=== PATIENT | female | born 1975 | race Caucasian/White ===

== ENCOUNTER → 2016-08-17 | Outpatient (CLI) | payer OTHER ==
[~2016-08-17] MED LIST: INDSR/60 PO
[2016-08-17 13:45] LABS: BASO % 0.4 %; BASO ABS # 0.03 K/uL (0-0.2); COMPLETE YES; EOS % 0.5 %; HEMATOCRIT 42.7 % (37-47); IG% 0.3 %; LYMPH % 21.4 %; MEAN CELL VOLUME 97.9 fL (80-100); MEAN CORPUSCULAR HEMOGLOBIN 33.7 pg (25-34); MEAN CORPUSCULAR HGB CONC 34.4 g/dl (32-36); MEAN PLATELET VOLUME 10.8 fL (7.4-10.4); MONO % 7.8 %; NEUT % 69.6 %; PLATELET COUNT 226 K/uL (130-400); RED BLOOD COUNT 4.36 M/uL (4.2-5.4); WHITE BLOOD COUNT 7.46 K/uL (4.8-10.8)
[2016-08-17 14:21] LABS: ALB/GLOB RATIO 1.3 (0.9-2); ALT/SGPT 18 U/L (12-78); AST/SGOT 13 U/L (15-37); BLOOD UREA NITROGEN 8 mg/dl (7-18); CALCIUM 8.5 mg/dl (8.5-10.1); CARBON DIOXIDE 28 mmol/L (21-32); CHLORIDE 106 mmol/L (98-107); CHOLESTEROL 202 mg/dl (0-200); CREATININE 0.75 mg/dl (0.60-1.20); GLUCOSE 87 mg/dl (70-99); SODIUM 141 mmol/L (136-145)
[2016-08-17 14:28] LABS: ALKALINE PHOSPHATASE 56 U/L (45-117); CHOLESTEROL/HDL RATIO 3.4; HDL CHOLESTEROL 60 mg/dl; THYROID STIMULATING HORMONE 0.702 uIu/ml (0.300-4.500); TRIGLYCERIDES 65 mg/dl (0-150); VERY LOW DENSITY LIPOPROT CALC 13 mg/dl
[2016-08-17 14:38] LABS: URINE APPEARANCE CLEAR (CLEAR); URINE BILIRUBIN NEG (NEG); URINE COLOR YELLOW; URINE NITRITE NEG (NEG); URINE PH 6.5 (4.5-7.5); URINE SPECIFIC GRAVITY 1.017 (1.000-1.030); UROBILINOGEN NEG (NEG)
[2016-08-17 14:47] LABS: MANUAL MICROSCOPIC REQUIRED? NO; REVIEW REQ? NO
== END | disposition home or self-care (01) ==
LOC: C.LABPBG 08:14
PROVIDERS: ATTEND Family Medicine
DX: E78.5 Hyperlipidemia, unspecified (principal); E55.9 Vitamin D deficiency, unspecified; G47.00 Insomnia, unspecified

== ENCOUNTER → 2017-01-23 | Outpatient (CLI) | payer OTHER ==
[2017-01-23 13:22] LABS: CHOLESTEROL/HDL RATIO 4.1
[2017-01-25 20:32] LABS: ZZ25HYDROXYVITAMIN D2+D3 26 ng/mL (30-100)
== END | disposition home or self-care (01) ==
LOC: C.LABPBG 09:01
PROVIDERS: ATTEND Family Medicine
DX: E78.5 Hyperlipidemia, unspecified (principal); E55.9 Vitamin D deficiency, unspecified

== ENCOUNTER 2017-09-04 16:43 | Emergency (ER) | payer OTHER ==
[~2017-09-04] VITALS: Ht 167.6 cm; Wt 70.5 kg
[2017-09-04 16:48] VITALS: Ht 167.6 cm; Wt 70.5 kg
[2017-09-04] MEDS ORDERED: ALBUT/IPRATROP 3MG/0.5MG NEB 3 ML VIAL INH STA (17:09)
[2017-09-04] MEDS ORDERED: ACETAMINOPHEN 500 MG TAB PO STA (17:09)
--- NOTE | 2017-09-04 17:22 | EMERGENCY ROOM VISIT NOTE ---
History First contact with patient: 16:51 Chief Complaint: FLU LIKE SX Stated Complaint: CHILLS,FEVER,BACK PAIN,SOB History of Present Illness The patient is a 42 year old female who presents to the Emergency Room with complaints of flulike symptoms. The patient reports that she has had chills, fever, bodyaches and cough beginning today. She states that approximately 3 weeks ago, she was diagnosed with influenza at the [place] emergency department. She states that her cough never improved since then. She reports that her temperature today was 101F. She does have a history of COPD and states that she often gets bronchitis. She rates her overall discomfort in 8/ 10. She did not take any medications for her symptoms. She does report some shortness of breath and has been using her inhalers at home without relief. She denies headache, neck pain/stiffness, abdominal pain, nausea or vomiting. Review of Systems A complete 10 point review of systems was reviewed with the patient with pertinent positives and negatives as per history of present illness. All else were negative. Past Medical/Surgical History Medical Problems: (1) COPD (chronic obstructive pulmonary disease) Surgical Problems: (1) History of cholecystectomy Social History Smoking Status: Never Smoker Alcohol Use: none Marital Status: Housing Status: lives with family Occupation Status: employed Current/Historical Medications Scheduled Azithromycin (Zithromax Z-Anthony), 0 PO UD Methylprednisolone (Medrol Dosepak), 0 PO DAILY Scheduled PRN Hydrocodone W/ Homatropine (Hycodan 5/1.5MG 5 Ml), 5-10 ML PO Q4H PRN for Cough Physical Exam Vital Signs Date Time Temp Pulse Resp B/P (MAP) Pulse Ox O2 Delivery O2 Flow Rate FiO2 09/04/17 19:28 92 97 09/04/17 18:32 99 98 Room Air 09/04/17 18:12 37.4 112 22 120/58 97 09/04/17 16:48 38.2 115 20 116/69 95 Room Air Physical Exam VITALS: Vitals are noted on the nurse's note and reviewed by myself. Vital signs stable. GENERAL: This is a 42-year-old female, in no acute distress, nondiaphoretic, well-developed well-nourished. SKIN: The skin was without rashes, erythema, edema, or bruising. There is no tenting of the skin. Capillary reflex less than 2 seconds. HEAD: Normocephalic atraumatic. EARS: External auditory canals clear, tympanic membranes pearly meneses without erythema or effusion bilaterally. EYES: Pupils equal round and reactive to light and accommodation. Conjunctivae without injection. NOSE: Patent, turbinates without inflammation or discharge. MOUTH: Mucous membranes moist. Tonsils are not enlarged. Pharynx without erythema or exudate. NECK: Supple without nuchal rigidity. No lymphadenopathy. HEART: Regular rate and rhythm without murmurs gallops or rubs. LUNGS: Coarse breath sounds heard throughout all lung hernández. No retractions or accessory muscle use. NEURO: Patient was alert and oriented to person place and time. Medical Decision & Procedures ER Provider Diagnostic Interpretation: CHEST 2 VIEWS ROUTINE CLINICAL HISTORY: Cough. Fever. COMPARISON STUDY: No previous studies for comparison. FINDINGS: Incidental note is made of cholecystectomy clips. Lung volumes are normal. There is no pneumothorax or pleural effusion. There is no consolidation. Pulmonary vascularity is normal. Cardiac size is normal. Mediastinal contours are normal. IMPRESSION: No acute cardiopulmonary findings. Laboratory Results 09/04/17 17:21 Red Blood Count 4.03, Mean Corpuscular Volume 95.5, Mean Corpuscular Hemoglobin 33.5, Mean Corpuscular Hemoglobin Concent 35.1, Mean Platelet Volume 10.2, Neutrophils (%) (Auto) 82.4, Lymphocytes (%) (Auto) 8.7, Monocytes (%) (Auto) 7.6, Eosinophils (%) (Auto) 0.6, Basophils (%) (Auto) 0.2, Neutrophils # (Auto) 5.10, Lymphocytes # (Auto) 0.54, Monocytes # (Auto) 0.47, Eosinophils # (Auto) 0.04, Basophils # (Auto) 0.01 09/04/17 17:21 Test 09/04/17 17:21 09/04/17 17:30 White Blood Count 6.19 K/uL (4.8-10.8) Red Blood Count 4.03 M/uL (4.2-5.4) Hemoglobin 13.5 g/dL (12.0-16.0) Hematocrit 38.5 % (37-47) Mean Corpuscular Volume 95.5 fL (80-100) Mean Corpuscular Hemoglobin 33.5 pg (25-34) Mean Corpuscular Hemoglobin Concent 35.1 g/dl (32-36) Platelet Count 175 K/uL (130-400) Mean Platelet Volume 10.2 fL (7.4-10.4) Neutrophils (%) (Auto) 82.4 % Lymphocytes (%) (Auto) 8.7 % Monocytes (%) (Auto) 7.6 % Eosinophils (%) (Auto) 0.6 % Basophils (%) (Auto) 0.2 % Neutrophils # (Auto) 5.10 K/uL (1.4-6.5) Lymphocytes # (Auto) 0.54 K/uL (1.2-3.4) Monocytes # (Auto) 0.47 K/uL (0.11-0.59) Eosinophils # (Auto) 0.04 K/uL (0-0.5) Basophils # (Auto) 0.01 K/uL (0-0.2) RDW Standard Deviation 45.0 fL (36.4-46.3) RDW Coefficient of Variation 12.9 % (11.5-14.5) Immature Granulocyte % (Auto) 0.5 % Immature Granulocyte # (Auto) 0.03 K/uL (0.00-0.02) Anion Gap 6.0 mmol/L (3-11) Est Creatinine Clear Calc Drug Dose 116.2 ml/min Estimated GFR () 131.0 Estimated GFR (Non- 113.1 BUN/Creatinine Ratio 19.5 (10-20) Calcium Level 8.3 mg/dl (8.5-10.1) Total Bilirubin 0.8 mg/dl (0.2-1) Aspartate Amino Transf (AST/SGOT) 31 U/L (15-37) Alanine Aminotransferase (ALT/SGPT) 39 U/L (12-78) Alkaline Phosphatase 58 U/L (45-117) Total Protein 6.3 gm/dl (6.4-8.2) Albumin 3.4 gm/dl (3.4-5.0) Globulin 2.9 gm/dl (2.5-4.0) Albumin/Globulin Ratio 1.2 (0.9-2) Influenza Type A Antigen Neg for Influ A (NEG) Influenza Type B Antigen Neg for Influ B (NEG) Medications Administered Medications (Trade) Dose Ordered Sig/Bipin Route Start Time Stop Time Status Last Admin Dose Admin Albuterol/ Ipratropium (Duoneb) 3 ml NOW STAT INH 09/04/17 17:09 09/04/17 17:12 DC 09/04/17 17:38 3 ML Acetaminophen (Tylenol Tab) 1,000 mg NOW STAT PO 09/04/17 17:09 09/04/17 17:12 DC 09/04/17 17:25 1,000 MG Sodium Chloride 1,000 ml @ 999 mls/hr Q1H1M STAT IV 09/04/17 18:15 09/04/17 19:15 DC 09/04/17 18:38 999 MLS/HR Medical Decision Differential diagnosis includes influenza, pneumonia, upper respiratory infection, COPD exacerbation, among others. The patient is a 42-year-old female who presents today complaining of cough and flulike symptoms. Labs revealed no leukocytosis, anemia or concerning electrolyte abnormalities. Chest x-ray showed no evidence of pneumonia. Patient was treated with IV fluids, DuoNeb treatment and Tylenol with symptomatic improvement. She also had improvement of her temperature and tachycardia. Patient likely has acute bronchitis and with her history of COPD, she will be treated with antibiotics and steroids. She was given Hycodan cough syrup for cough. Conservative measures were discussed. Based on the patient's presentation and work up, I feel the patient is stable for outpatient treatment. The patient was educated to return to the emergency department for any worsening of their current condition or new/concerning symptoms. She will follow up with her PCP. Medication Reconcilliation Current Medication List: was personally reviewed by ak Blood Pressure Screening Patient's blood pressure: Normal blood pressure Impression Primary Impression: Acute bronchitis Departure Information Dispostion Home / Self-Care Condition GOOD Prescriptions Hydrocodone W/ Homatropine (HYCODAN 5/1.5MG 5 ML) 1 Syp Syp 5-10 ML PO Q4H Y for Cough, #60 ML Prov: Tessa Koroma PA-C 09/04/17 Methylprednisolone (MEDROL DOSEPAK) 4 Mg Anthony 0 PO DAILY, #1 PKT Prov: Tessa Koroma PA-C 09/04/17 Azithromycin (ZITHROMAX Z-ANTHONY) 250 Mg Tab 0 PO UD, #1 PKT 2 TABS DAY 1, THEN 1 TAB DAILY FOR 4 DAYS Prov: Tessa Koroma PA-C 09/04/17 Referrals Lenard Davis PA-C (PCP) Patient Instructions My [facility] Additional Instructions You were prescribed Zithromax to be taken as prescribed. This is an antibiotic. All antibiotics have the potential to cause diarrhea. Stop this medication and contact a medical provider if you were to develop any significant adverse side effects including: wheezing, shortness of breath, passing out, vomiting, or a diffuse rash. Always take antibiotics as directed and COMPLETE the ENTIRE course regardless of the improvement of your symptoms. You have been prescribed a Medrol Dosepak. This is a steroid which will help decrease your inflammation, redness, and itch. Take the medicine as prescribed. Take the ENTIRE 6 day course of the steroids. For pain/fever control, you can use the following [id number] medicines ( if >12 yo): - Regular strength (325mg/tab) Tylenol (acetaminophen) 2 tabs every 4-6 hours as needed. Do not exceed 12 tablets in a 24 hour period. Avoid taking more than 4 grams (4000 mg) of Tylenol per day. This includes any other sources of acetaminophen you may take on a regular basis. - Regular strength (200 mg/tab) Advil (ibuprofen) 3-4 tabs every 4-6 hours as needed. Do not exceed a dose of 3200 mg per day. Take the Hycodan cough syrup as needed for severe cough. Be aware that this is a narcotic medication and may make you drowsy. Do not drive or drink alcohol while taking this medication. Follow-up with your primary care provider this week for a recheck. Return to the emergency department with any worsening or new/concerning symptoms. Problem Qualifiers Primary Impression: Acute bronchitis Bronchitis organism: unspecified organism Qualified Codes: J20.9 - Acute bronchitis, unspecified
[2017-09-04 17:34] LABS: BASO % 0.2 %; BASO ABS # 0.01 K/uL (0-0.2); EOS % 0.6 %; EOS ABS # 0.04 K/uL (0-0.5); HEMATOCRIT 38.5 % (37-47); HEMOGLOBIN 13.5 g/dL (12.0-16.0); IG# 0.03 K/uL (0.00-0.02); LYMPH % 8.7 %; LYMPH ABS # 0.54 K/uL (1.2-3.4); MEAN CELL VOLUME 95.5 fL (80-100); MEAN CORPUSCULAR HEMOGLOBIN 33.5 pg (25-34); MEAN CORPUSCULAR HGB CONC 35.1 g/dl (32-36); MEAN PLATELET VOLUME 10.2 fL (7.4-10.4); MONO % 7.6 %; MONO ABS # 0.47 K/uL (0.11-0.59); NEUT % 82.4 %; PLATELET COUNT 175 K/uL (130-400); RED CELL DISTRIBUTION WIDTH CV 12.9 % (11.5-14.5); WHITE BLOOD COUNT 6.19 K/uL (4.8-10.8)
--- NOTE | 2017-09-04 17:41 | DIAGNOSTIC IMAGING REPORT ---
CHEST 2 VIEWS ROUTINE CLINICAL HISTORY: Cough. Fever. COMPARISON STUDY: No previous studies for comparison. FINDINGS: Incidental note is made of cholecystectomy clips. Lung volumes are normal. There is no pneumothorax or pleural effusion. There is no consolidation. Pulmonary vascularity is normal. Cardiac size is normal. Mediastinal contours are normal. IMPRESSION: No acute cardiopulmonary findings. Electronically signed by: Joseph Felix M.D. 09/04/2017 5:39 PM Dictated Date/Time: 09/04/2017 5:38 PM
[2017-09-04 17:54] LABS: ALBUMIN 3.4 gm/dl (3.4-5.0); CALCIUM 8.3 mg/dl (8.5-10.1); CREATININE 0.59 mg/dl (0.60-1.20); POTASSIUM 3.4 mmol/L (3.5-5.1)
[2017-09-04 17:56] LABS: TOTAL PROTEIN 6.3 gm/dl (6.4-8.2)
[2017-09-04 18:01] LABS: INFLUENZA B ANTIGEN Neg for Influ B (NEG)
[2017-09-04 18:12] VITALS: BP 120/58; TEMP 37.4
[2017-09-04] MEDS ORDERED: SODIUM CHLORIDE 0.9% 1000ML 1,000 ML IV STA (18:15)
[2017-09-04] MEDS ORDERED: HYDR5SYP11 PO (18:36)
[2017-09-04] MEDS ORDERED: AZITTAB PO (18:36)
[2017-09-04] MEDS ORDERED: METH4PAK PO (18:36)
[2017-09-04 19:28] VITALS: PULSE 92; O2SAT 97
== END 2017-09-04 19:30 | disposition home or self-care (01) ==
LOC: C.EDB 16:45 → C.EDC 19:30
DX: J44.0 Chronic obstructive pulmonary disease with (acute) lower respiratory infection (principal); Z90.49 Acquired absence of other specified parts of digestive tract

== ENCOUNTER 2022-06-23 16:26 | Observation (INO) ==
[2022-06-23] MEDS ORDERED: ACETAMINOPHEN 325 MG TAB PO PRN (16:29)
[2022-06-23] MEDS ORDERED: Patient's HEIGHT &/or WEIGHT Needed SCH (17:00)
--- NOTE | 2022-06-23 18:22 | XRay Report ---
SINGLE VIEW CHEST CLINICAL HISTORY: Atypical chest pain. FINDINGS: An AP, portable, upright chest radiograph is compared to study dated 06/03/2019. The cardio mediastinal silhouette is unremarkable. There is left basilar atelectasis. The lungs and pleural spac es are otherwise clear. No pneumothorax is seen. The bony thorax is grossly intact. Cholecystectomy c lips are noted in the right upper quadrant. IMPRESSION: No active disease in the chest. ACT 112: Negative or not required by law. Electronically signed by: Oliverio Butler M.D. 06/23/2022 6:21 PM
--- NOTE | 2022-06-23 18:45 | History & Physical Report ---
Date of Service June 23, 2022 Assessment & Plan (1) Symptomatic varicose veins: Plan: Fanny is a 46-year-old female with a past medical history of COPD and tobacco use, varicose veins with venous stasis who presents as a direct admit from her PCPs office with concerns of 30 pounds of weight gain since January, worsening lower extremity swelling, and worsening fatigue/shortness of breath. Patient reports that she has no history of heart attack, diabetes, or CHF. She was seen for lower extremity edema by nephrology in the past and was found to have minimal proteinuria. No CHF was appreciated at that time 11/2021. Weight gain, lower extremity swelling, shortness of breath Recommended for direct admission on discussion with PCP for leg swelling, 3 pounds of weight gain since end of summer, and increasing shortness of breath On exam with pitting edema through the leg bilaterally, patient is with a history of venous stasis No JVD, lungs are clear, CXR without acute findings On direct and admitting assessment exam is more consistent with worsened venous stasis, recommend elevation, compression, and fluid mobilization We will complete CHF work-up, BNP/echo pending at time of admission patient has no EKG changes on admission and is in a normal sinus rhythm Discussed that if she has evidence of reduced systolic function and pulmonary edema she would benefit from Lasix, however if her fluid retention is mainly due to venous stasis then she must pee the fluid out and to do that the fluid must be mobilized from her legs to the kidneys. COPD History of 5 years tobacco use, 1 pack/week No PFTs available for review No wheezing on exam, patient endorses intermittent wheezing Albuterol as needed Hypokalemia, hyponatremia Reported potassium 3.4, sodium 134 as outpatient, pending patient labs. Mild,? SIADH versus delusional as outpatient Urine studies pending No known history of malignancy, pending CHF eval including BNP For now we will fluid restrict, and replete potassium. Labs pending DVT prophylaxis: Lovenox Diet: Low-salt Disposition: Initially on medical/telemetry due to report of hyponatremia/hypokalemia with CHF. If doing well and downgrade CODE STATUS: Full code (2) COPD (chronic obstructive pulmonary disease): Admission and Anticipated Discharge Date Admission Date: June 23, 2022 History of Present Illness Primary Care Provider: Faraz Marina DO Fanny is a 46-year-old female with a past medical history of COPD and tobacco use, varicose veins with venous stasis who presents as a direct admit from her PCPs office with concerns of 30 pounds of weight gain since January, worsening lower extremity swelling, and worsening fatigue/shortness of breath. Patient reports that she has no history of heart attack, diabetes, or CHF. She was seen for lower extremity edema by nephrology in the past and was found to have minimal proteinuria. No CHF was appreciated at that time 11/2021. On arrival to the ER patient is breathing comfortably on room air. She does have lower extremity edema bilaterally through the knee. She endorses that she feels she has had worsening leg swelling for the past year, and significantly more in the last 2 months. She denies dietary indiscretion, including crackers/salt/soup/deli meats. [facility] [place] [facility] and has noticed some increased fatigue, but has not had any chest pain, chest pressure with this and is generally not stopped by her shortness of breath. She intermittently wheezes, has a history of COPD with 1 pack/week tobacco use for around 5 years in remission with last tobacco use October 2021. She has been on albuterol in the past, has not had daily inhalers. No cough, sputum production, abdominal pain, syncope, presyncope. Family history of DC and diabetes in her father, she is unsure which age. CVA in her father. She has no personal history of DM/CVA/TIA. Medical History: Reviewed Medications: Reviewed Surgical History: Reviewed Allergies: Reviewed Social History: Tobacco use in remission as noted. Rare social alcohol use. Code Status: Full code Allergies Allergy/AdvReac Type Severity Reaction Status Date / Time niacin Allergy Unknown Flushing Verified 11/24/21 11:56 atorvastatin AdvReac Unknown Muscle Pain Verified 11/24/21 11:56 Home Medications Medication Instructions Recorded Confirmed Type albuterol sulfate 90 mcg/actuation 2 puff inhalation Q4H PRN 06/03/19 11/24/21 History aerosol inhaler (Ventolin HFA) Shortness Of Breath Or Wheezing fexofenadine 180 mg tablet 180 mg PO DAILY 10/28/20 11/24/21 History fluticasone propionate 50 1 spray intranasal BID 10/28/20 11/24/21 History mcg/actuation nasal spray,suspension montelukast 10 mg tablet 10 mg PO DAILY 10/28/20 11/24/21 History simvastatin 10 mg tablet 10 mg PO QPM 12/23/20 11/24/21 History ascorbic acid (vitamin C) 1,000 mg 1 g PO DAILY 11/24/21 11/24/21 History tablet cholecalciferol (vitamin D3) 50 50 mcg PO DAILY 11/24/21 11/24/21 History mcg (2,000 unit) capsule cyanocobalamin (vitamin B-12) 100 mcg IM MONTHLY 11/24/21 11/24/21 History 1,000 mcg/mL injection solution potassium chloride 10 mEq 10 meq PO DAILY #90 caps 12/19/21 Rx capsule,extended release hydrochlorothiazide 25 mg tablet 25 mg PO DAILY #90 tabs 05/16/22 Rx Past Med/Surg History Medical History COPD (chronic obstructive pulmonary disease) Surgical History History of cholecystectomy Family History Denies family history of Kidney disease Social History Smoking Status: Current every day smoker Tobacco Type: Cigarettes Preferred Language: Syrian marital status: current occupational status: employed Feels Safe at Home: Yes Review of Systems Review of Systems: All systems reviewed & are unremarkable except as noted in HPI & below and All systems reviewed & are unremarkable except as noted in Subj ective Physical Exam Physical Exam: General: A&Ox3. NAD. Cooperative. HEENT: Atraumatic, normocephalic. Pulm: CTAB A&P. -wheezes, -rales, -rhonchi. Symmetrical chest rise. No increased work of breathing. No respiratory distress. Cardiac: RRR, -mrg. Radial pulses intact and symmetrical. No JVD Abdominal: Nontender, nondistended, soft. BS present. Ext: Pitting edema 1-2+ to the knee bilat. Sensation/strength intact withotu asymmetry or deficit. Results & Data Results & Data ([facility]) Vital Signs (Past 12 Hours) Vital Signs Temp Pulse Resp BP Pulse Ox O2 Del Method 06/23/22 17:32 36.8 C 90 18 147/88 H 96 Room Air Code Status & VTE Plan VTE Prophylaxis Plan VTE Prophylaxis will be ordered: Yes PG Care Time/CCT Total # of Minutes Spent Total Time Spent with Patient: Total time spent is greater than 50% in coordination of care (as documented) at patient's floor/unit and/or counseling patient: Coding Level of Care Code INT OBSERVATION CARE 50M LVL 2 Diagnoses Symptomatic varicose veins I83.899 COPD (chronic obstructive pulmonary disease) J44.9
[2022-06-23] MEDS ORDERED: ALBUTEROL HFA 8 GM INHALER INH PRN (18:46)
[2022-06-23 19:16] LABS: Basophils # (auto) 0.07 K/uL (0-0.2); Basophils % (auto) 0.7 %; Eosinophils # (auto) 0.12 K/uL (0-0.50); Eosinophils % (auto) 1.2 %; Hematocrit (blood only) 43.1 % (34.1-44.9); Hemoglobin 14.6 g/dl (12.0-16.0); Immature Granulocytes # (auto) 0.08 K/uL (0.00-0.02); Immature Granulocytes % (auto) 0.8 %; Lymphocytes # (auto) 1.99 K/uL (1.2-3.4); Lymphocytes % (auto) 19.6 %; Mean Corpuscular Hemoglobin 33.7 pg (25.0-34.0); Mean Corpuscular Hgb Conc 33.9 g/dL (32.0-36.0); Mean Corpuscular Volume 99.5 fL (80.0-100.0); Mean Platelet Volume 10.3 fL (9.4-12.3); Monocytes # (auto) 0.93 K/uL (0.24-0.82); Monocytes % (auto) 9.1 %; Neutrophils # (auto) 6.98 K/uL (1.4-6.5); Neutrophils % (auto) 68.6 %; Platelet Count 261 K/uL (130-400); RDW Coefficient of Variation 12.1 % (11.5-14.5); RDW Standard Deviation 44.3 fL (36.4-46.3); Red Blood Count 4.33 M/uL (3.93-5.22); White Blood Count 10.17 K/ul (4.8-10.8)
[2022-06-23 19:48] LABS: Troponin I High Sensitivity 3.9 pg/ml (0-14)
[2022-06-23 19:51] LABS: BUN Creatinine Ratio 32.3 (10-20); Calcium 9.7 mg/dl (8.5-10.1); Est GFR (African American) 123.4 ml/min; Est GFR (Non-African American) 106.5 ml/min; Potassium 3.6 mmol/L (3.5-5.1)
[2022-06-23] MEDS: POTASSIUM CHLORIDE 10 MEQ TABCR PO SCH (20:28)
[2022-06-23 21:22] LABS: Creatinine Urine Random 20.8 mg/dl
[2022-06-24 06:52] LABS: Basophils # (auto) 0.06 K/uL (0-0.2); Basophils % (auto) 0.8 %; Eosinophils # (auto) 0.13 K/uL (0-0.50); Eosinophils % (auto) 1.8 %; Hematocrit (blood only) 41.3 % (34.1-44.9); Hemoglobin 14.1 g/dl (12.0-16.0); Immature Granulocytes # (auto) 0.07 K/uL (0.00-0.02); Lymphocytes # (auto) 1.43 K/uL (1.2-3.4); Lymphocytes % (auto) 19.8 %; Mean Corpuscular Hemoglobin 33.4 pg (25.0-34.0); Mean Corpuscular Hgb Conc 34.1 g/dL (32.0-36.0); Mean Corpuscular Volume 97.9 fL (80.0-100.0); Mean Platelet Volume 10.1 fL (9.4-12.3); Monocytes # (auto) 0.76 K/uL (0.24-0.82); Monocytes % (auto) 10.5 %; Neutrophils # (auto) 4.78 K/uL (1.4-6.5); Neutrophils % (auto) 66.1 %; Platelet Count 244 K/uL (130-400); RDW Coefficient of Variation 12.3 % (11.5-14.5); RDW Standard Deviation 44.1 fL (36.4-46.3); Red Blood Count 4.22 M/uL (3.93-5.22); White Blood Count 7.23 K/ul (4.8-10.8)
[2022-06-24 07:12] LABS: BUN Creatinine Ratio 31.6 (10-20); Calcium 8.9 mg/dl (8.5-10.1); Creatinine Clr Calc Pharmacy 134.9 ml/min; Est GFR (African American) 128.9 ml/min; Est GFR (Non-African American) 111.2 ml/min; Potassium 4.1 mmol/L (3.5-5.1)
[2022-06-24] MEDS: POTASSIUM CHLORIDE 10 MEQ TABCR PO SCH (08:17)
[2022-06-24] MEDS ORDERED: ENOXAPARIN INJ 40 MG/0.4 ML SYR SQ SCH (09:00)
[2022-06-24] MEDS ORDERED: FEXOFENADINE HCL 180 MG TAB PO SCH (09:00)
[2022-06-24] MEDS ORDERED: CHOLECALCIFEROL 5,000 UNITS 125 MCG TAB PO SCH (09:00)
[2022-06-24] MEDS ORDERED: hydroCHLOROthiazide 25 MG TAB PO SCH (09:00)
[2022-06-24] MEDS ORDERED: MONTELUKAST SOD 5 MG CHEWABLE TAB PO SCH (09:00)
--- NOTE | 2022-06-24 12:26 | XCELERA ---
[id number]
[2022-06-24] MEDS ORDERED: FUROSEMIDE 20 MG TAB PO ONE (12:57)
[2022-06-24] MEDS ORDERED: MAGNESIUM OXIDE 400 MG TAB PO SCH (13:00)
--- NOTE | 2022-06-24 14:01 | Ultrasound Report ---
BILATERAL LOWER EXTREMITY VENOUS DOPPLER CLINICAL HISTORY: edema, r/o DVT COMPARISON STUDY: No previous studies for comparison. TECHNIQUE: Sonography of the deep venous system of the bilateral lower extremities was performed. Co mpression and augmentation were evaluated. FINDINGS: The bilateral common femoral, superficial femoral and popliteal veins were compressible. A ugmentation was normal. Flow was shown within the deep calf vessels. IMPRESSION: No evidence of deep venous thrombus within the bilateral lower extremities. ACT 112: Negative or not required by law. Electronically signed by: Joseph Felix M.D. 06/24/2022 1:59 PM
--- NOTE | 2022-06-24 15:08 | Discharge Summary ---
Date of Service June 24, 2022 Admission HPI Per Admitting Provider Fanny is a 46-year-old female with a past medical history of COPD and tobacco use, varicose veins with venous stasis who presents as a direct admit from her PCPs office with concerns of 30 pounds of weight gain since January, worsening lower extremity swelling, and worsening fatigue/shortness of breath. Patient reports that she has no history of heart attack, diabetes, or CHF. She was seen for lower extremity edema by nephrology in the past and was found to have minimal proteinuria. No CHF was appreciated at that time 11/2021. On arrival to the ER patient is breathing comfortably on room air. She does have lower extremity edema bilaterally through the knee. She endorses that she feels she has had worsening leg swelling for the past year, and significantly more in the last 2 months. She denies dietary indiscretion, including crackers/salt/soup/deli meats. [place] [facility] [employer] and has noticed some increased fatigue, but has not had any chest pain, chest pressure with this and is generally not stopped by her shortness of breath. She intermittently wheezes, has a history of COPD with 1 pack/week tobacco use for around 5 years in remission with last tobacco use October 2021. She has been on albuterol in the past, has not had daily inhalers. No cough, sputum production, abdominal pain, syncope, presyncope. Family history of LA and diabetes in her father, she is unsure which age. CVA in her father. She has no personal history of DM/CVA/TIA. Medical History: Reviewed Medications: Reviewed Surgical History: Reviewed Allergies: Reviewed Social History: Tobacco use in remission as noted. Rare social alcohol use. Code Status: Full code Discharge Data Allergies Allergy/AdvReac Type Severity Reaction Status Date / Time niacin Allergy Unknown Flushing Verified 11/24/21 11:56 atorvastatin AdvReac Unknown Muscle Pain Verified 11/24/21 11:56 Ordered Studies 06/24/22 10:00 US venous doppler LE BI Routine Discharge Plan Discharge Items Patient Disposition: Home - Self-Care Reason For Visit: Edema, weight gain Discharge Diagnosis: 1. edema of the legs 2. weight gain 3. normal thyroid, liver and kidney function 4. normal echocardiogram of the heart; no evidence of congestive heart failure Activity: Resume your previous activity Activity Comment: as tolerated Non-emergency contact: Primary Care Provider Call non-emergency contact if: you have any medication questions and your symptoms worsen Follow-up/Referrals: Faraz Marina, [Primary Care Provider] - (please see your family doctor middle of this coming week for recheck of edema and labs ) Diet: Heart Healthy Addtl Attending Provider Instructions: Mrs Lopez, You were hospitalized due to concerns for ongoing weight gain and edema/swelling of your legs. Most importantly we wanted to ensure you did not have congestive heart failure as the cause of your symptoms. We performed a heart ultrasound ("echocardiogram") that returned normal. The blood work for your heart was normal. We did not find evidence of congestive heart failure. Your liver function tests, kidney function, and thyroid function were normal. Thus, it does not appear you have liver disease, kidney disease, or thyroid disease causing the swelling. Your dopplers of the legs did not show evidence of blood clots (blood clots of the legs can cause swelling). Recommendations - 1. STOP your hydrochlorothiazide 2. In its place START furosemide 20mg once daily each morning; this is a water pill. Prescription sent to [facility] for you. 3. TAKE potassium supplement 10meq once daily 4. TAKE magnesium supplement 400mg once daily. Prescription sent to [facility] for you. 5. Avoid high-salt containing foods. I have included a handout called the "DASH diet" that is excellent for blood pressure and it keeps salt consumption low. 6. No need to severely restrict your fluids as you do not have congestive heart failure or kidney disease. If you drink about 2000cc (2 liters) each day this is neither too little or too much for you. 7. Consider wearing compression stockings. These help support your legs when you are on your feet at work, and they do help with swelling. You can purchase these at [facility]. 8. Check your weight each morning over the next few weeks. This will tell you how much of your recent weight gain was actual water weight. 9. Ask your family doctor to consider an ultrasound of your liver (or CT scan) to be complete. If the ultrasound is normal we can completely cross off liver disease causing your edema. Follow-up - see your family doctor this week Return to [facility] if - * you develop shortness of breath * you have chest pains * you develop swelling in your arms, worsening swelling in your abdomen or legs, etc * any other concerns It was our pleasure to care for you! Happy Holidays, Dr Wallace Pending Studies at Discharge: No Stand-Alone Forms: [facility], Work/School Release, Smoking Cessation Medications and DC Order Prescriptions: New magnesium oxide 400 mg (241.3 mg magnesium) Tablet 400 mg PO QAM Qty: 30 2RF furosemide [Lasix] 20 mg tablet 20 mg PO QAM Qty: 30 2RF Continued potassium chloride 10 mEq capsule, extended release 10 meq PO DAILY Qty: 90 3RF ascorbic acid (vitamin C) 1,000 mg tablet 1 g PO DAILY cholecalciferol (vitamin D3) 50 mcg (2,000 unit) capsule 50 mcg PO DAILY cyanocobalamin (vitamin B-12) 1,000 mcg/mL solution 100 mcg IM MONTHLY albuterol sulfate [Ventolin HFA] 90 mcg/actuation HFA aerosol inhaler 2 puff inhalation Q4H PRN (Reason: Shortness Of Breath Or Wheezing) fexofenadine 180 mg tablet 180 mg PO DAILY montelukast 10 mg tablet 10 mg PO DAILY fluticasone propionate 50 mcg/actuation spray,suspension 1 spray INTRANASAL BID simvastatin 10 mg tablet 10 mg PO QPM Discontinued hydrochlorothiazide 25 mg tablet 25 mg PO DAILY Qty: 90 3RF Discharge Orders: Discharge Order (Routine); Ordered 06/24/22 Ordered By: Baldo Kwon/Other Patient Handouts: DASH Plan Eat Heart Healthy Food Admission Data Admit Date/Time: 06/23/22 17:13 Attending Provider: Baldo Wallace Admit Provider: Oneal Triplett Primary Care Provider: Faraz Marina Other Interventions: Discharge Summary Assessment (RN) Last Done: 06/24/22 14:59 Coding
--- NOTE | 2022-06-25 22:54 | Electrocardiogram Report ---
Test Reason : Blood Pressure : / mmHG Vent. Rate : 087 BPM Atrial Rate : 087 BPM P-R Int : 130 ms QRS Dur : 080 ms QT Int : 360 ms P-R-T Axes : 052 033 028 degrees QTc Int : 433 ms Normal sinus rhythm Possible Left atrial enlargement Nonspecific ST abnormality Abnormal ECG When compared with ECG of 03-JUN-2019 17:02, Nonspecific T wave abnormality no longer evident in Anterior leads Confirmed by Isidro Romero ([id number]) on 06/25/2022 10:54:37 PM Referred By: Faraz Marina Confirmed By:Isidro Romero
== END 2022-06-24 15:51 | disposition home or self-care (01) ==
LOC: 2N → SUATTDRO 17:13

== ENCOUNTER 2023-07-17 08:55 | Observation (INO) ==
--- NOTE | 2023-07-06 12:20 | Anesthesiology Consultation ---
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 Madhav Corey, DO Height/Weight Height: 5 ft 6.5 in Weight: 79.379 kg Allergies Allergy/AdvReac Type Severity Reaction Status Date / Time niacin Allergy Unknown Flushing Verified 07/05/23 15:12 atorvastatin AdvReac Unknown Muscle Pain Verified 07/05/23 15:12 Medications Home Medications Medication Instructions Recorded Confirmed Last Taken ascorbic acid (vitamin C) 1,000 mg 1 g PO QAM 11/24/21 07/05/23 09/08/22 tablet furosemide 20 mg tablet (Lasix) 40 mg PO QAM 10/11/22 07/05/23 Unknown albuterol sulfate 90 mcg/actuation 2 puff inhalation Q4H PRN 10/13/22 07/05/23 Unknown aerosol inhaler (Ventolin HFA) Shortness Of Breath Or Wheezing #8.5 grams tiotropium bromide 2.5 2 puff inhalation QAM #4 grams 10/13/22 07/05/23 Unknown mcg/actuation mist for inhalation (Spiriva Respimat) miscellaneous medical supply See Rx Instructions miscellaneous 02/01/23 07/05/23 Unknown DAILY #1 ea miscellaneous medical supply 1 ea miscellaneous ONCE #1 ea 06/13/23 07/05/23 Unknown cholecalciferol (vitamin D3) 50 125 mcg (2.5 x 50 mcg (2,000 06/19/23 07/05/23 Unknown mcg (2,000 unit) capsule unit)) PO DAILY #90 caps magnesium oxide 400 mg (241.3 mg 400 mg PO QAM #30 tabs 06/19/23 07/05/23 Unknown magnesium) tablet trazodone 50 mg tablet 50 mg PO HS #30 tabs 06/19/23 07/05/23 Unknown peg 3350-sod [id number] See Rx Instructions PO .COMPLEX #2 07/02/23 Unknown 178.7-7.3-0.5-1.12-0.9 gram oral mL soln (Suflave) aspirin 81 mg tablet,delayed 81 mg PO HS 07/05/23 07/05/23 Unknown release (Adult Aspirin Regimen) fexofenadine 180 mg tablet 180 mg PO QAM 07/05/23 07/05/23 Unknown montelukast 10 mg tablet 10 mg PO HS 07/05/23 07/05/23 Unknown potassium chloride 10 mEq 10 meq PO QAM 07/05/23 07/05/23 Unknown capsule,extended release rosuvastatin 5 mg tablet (Crestor) 5 mg PO HS 07/05/23 07/05/23 Unknown Past Medical History Medical History (Updated 07/06/23 @ 12:19 by Mahi Chavira, RN, TEST ENGINEERING INTERN) Prediabetes diet controlled Anxiety and depression Hx of migraines Sleep apnea cpap Asthma daily and prn inh>doesn't use the inhalers due to recent weight loss (2022) Thyroid nodule monitoring Hyperlipidemia B12 deficiency Pericardial cyst dx early 2022, found on scan thru [place] [facility]>sent to [facility] [place] Symptomatic varicose veins COPD (chronic obstructive pulmonary disease) "[facility] 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 i didn't have copd" Past Family History Family History Grandmother (Maternal) Breast cancer Grandmother (Paternal) Breast cancer Ovarian cancer Mother Colorectal cancer Father Myocardial infarction Diabetes Uncle Prostate cancer Other Cancer Emphysema lung Heart disease Lung disease Denies family history of Kidney disease Asthma Past Surgical History Surgical History History of bilateral tubal ligation Hx of laparoscopy History of esophagogastroduodenoscopy (EGD) Hx of colonoscopy Hx of sinus surgery w/septoplasty Hx of cardiac catheterization ~age [age], ph [facility], for palpitations, no stents; f/u [facility] H/O hernia repair H/O: hysterectomy History of cholecystectomy Social History Smoking Status: Former smoker Smoking cigarettes per day: smoked 1 pack/week Do You Dip or Chew Tobacco: No Smoking End Date: 10/2021 Hx Alcohol Use: Yes (no longer drinks) alcohol intake frequency: holidays/special occasions only Hx Substance Use: No substance use type: does not use
--- NOTE | 2023-07-17 09:33 | History & Physical Report ---
Date of Service July 17, 2023 Assessment & Plan (1) Family history of colon cancer: Plan: Proceed with colonoscopy History of Present Illness Chief Complaint: Family history of colon cancer Primary Care Provider: EDDI Ingram 48 yo CF who presents for colonoscopy secondary to family history of colon cancer. Allergies Allergy/AdvReac Type Severity Reaction Status Date / Time niacin Allergy Unknown Flushing Verified 07/17/23 09:11 atorvastatin AdvReac Unknown Muscle Pain Verified 07/17/23 09:11 Home Medications Medication Instructions Recorded Confirmed Type ascorbic acid (vitamin C) 1,000 mg 1 g PO QAM 11/24/21 07/17/23 History tablet furosemide 20 mg tablet (Lasix) 40 mg PO QAM 10/11/22 07/17/23 History albuterol sulfate 90 mcg/actuation 2 puff inhalation Q4H PRN 10/13/22 07/17/23 Rx aerosol inhaler (Ventolin HFA) Shortness Of Breath Or Wheezing #8.5 grams tiotropium bromide 2.5 2 puff inhalation QAM #4 grams 10/13/22 07/05/23 Rx mcg/actuation mist for inhalation (Spiriva Respimat) miscellaneous medical supply See Rx Instructions miscellaneous 02/01/23 07/05/23 Rx DAILY #1 ea miscellaneous medical supply 1 ea miscellaneous ONCE #1 ea 06/13/23 07/17/23 Rx cholecalciferol (vitamin D3) 50 125 mcg (2.5 x 50 mcg (2,000 06/19/23 07/17/23 Rx mcg (2,000 unit) capsule unit)) PO DAILY #90 caps peg 3350-sod sulf,[id number] See Rx Instructions PO .COMPLEX #2 07/02/23 Rx 178.7-7.3-0.5-1.12-0.9 gram oral mL soln (Suflave) aspirin 81 mg tablet,delayed 81 mg PO HS 07/05/23 07/17/23 History release (Adult Aspirin Regimen) fexofenadine 180 mg tablet 180 mg PO QAM 07/05/23 07/17/23 History montelukast 10 mg tablet 10 mg PO HS 07/05/23 07/05/23 History potassium chloride 10 mEq 10 meq PO QAM 07/05/23 07/05/23 History capsule,extended release rosuvastatin 5 mg tablet (Crestor) 5 mg PO HS 07/05/23 07/05/23 History magnesium oxide 400 mg (241.3 mg 400 mg PO QAM #90 tabs 07/13/23 Rx magnesium) tablet trazodone 50 mg tablet 50 mg PO HS #90 tabs 07/13/23 Rx Past Med/Surg History Medical History (Updated 07/17/23 @ 09:33 by Kenneth Corey, DO) Prediabetes diet controlled Anxiety and depression Hx of migraines Sleep apnea cpap Asthma daily and prn inh>doesn't use the inhalers due to recent weight loss (2022) Thyroid nodule monitoring Hyperlipidemia B12 deficiency Pericardial cyst dx early 2022, found on scan thru [place] [facility]>sent to [facility] [place] Symptomatic varicose veins COPD (chronic obstructive pulmonary disease) "[facility] patient financial specialist told me i didn't have copd" Surgical History History of bilateral tubal ligation Hx of laparoscopy History of esophagogastroduodenoscopy (EGD) Hx of colonoscopy Hx of sinus surgery w/septoplasty Hx of cardiac catheterization ~age [age], ph [facility], for palpitations, no stents; f/u [facility] H/O hernia repair H/O: hysterectomy History of cholecystectomy Family History Grandmother (Maternal) Breast cancer Grandmother (Paternal) Breast cancer Ovarian cancer Mother Colorectal cancer Father Myocardial infarction Diabetes Uncle Prostate cancer Other Cancer Emphysema lung Heart disease Lung disease Denies family history of Kidney disease Asthma Social History Smoking Status: Former smoker Tobacco Type: Cigarettes Age Started Using Tobacco: 20; Age Quit Using Tobacco: 46; Cigarettes Per Day: smoked 1 pack/week; Smoking End Date: 10/2021; Second Hand Exposure: No; Do You Dip or Chew Tobacco: No; Tobacco Cessation Education Requested by Patient: No Hx Alcohol Use: Yes (no longer drinks) Hx Substance Use: No Preferred Language: Spanish Communication Ability: Effective Visual Impairment: No Limitations Hearing Ability: Normal Hairspring Ii Inspector Required: No Beliefs That Will Affect Care: None marital status: Current Living Situation: Spouse current occupational status: employed current occupation: [employer] How many Children do You have: 2 Other Information That Helps Us Care for You: No Feels Safe at Home: Yes Safety Concerns: Feels Safe At This Time Childhood Exposure to Second-Hand Smoke: Yes Diet: low salt and regular Diet Comment: Regular- low sodium caffeine: Yes during the past year weight has: decreased > 10 lbs Dental Care, Regularly: No Physical Activity Frequency: Daily Seatbelt Use: always Sunscreen Use: Yes Assistive Devices: Denture - Upper, Denture - Lower and Glasses Physical Exam Constitutional: WD/WN, vitals as above Respiratory: normal respiratory effort, lungs clear to auscultation Cardiovascular: RRR, no murmur, no edema Gastrointestinal (Abdomen): normal bowel sounds, soft, nontender, no hepatosplenomegaly Results & Data Vital Signs (Past 12 Hours) Vital Signs Temp Pulse Resp BP Pulse Ox O2 Del Method 07/17/23 09:14 36.1 C L 83 16 127/81 98 Room Air Coding Level of Care Code None Diagnoses Family history of colon cancer Z80.0
[2023-07-17] MEDS ORDERED: ONDANSETRON INJ 2 MG/ML 2 ML VIAL ONE (10:04)
[2023-07-17] MEDS ORDERED: PROPOFOL IV EMULSION 10 MG/ML 20 ML VIAL IV ONE (10:04)
[2023-07-17] MEDS ORDERED: LIDOCAINE 2% 2 ML VIAL/AMP(20MG/ML) INFIL ONE (10:04)
--- NOTE | 2023-07-17 10:04 | GI REPORT ---
Patient Name: Fanny Lopez Procedure Date: 07/17/2023 9:42 AM Date of : 1975 Admit Type: Outpatient Age: 48 Gender: Female Attending MD: Kenneth Corey DO, Procedure: Colonoscopy Providers: Kenneth Corey DO Referring MD: Mikki Ingram Indications: Family history of colon cancer in a first-degree relative before age 60 years Medicines: Monitored Anesthesia Care Complications: Perforation Estimated Blood Loss: Estimated blood loss: none. Procedure: Pre-Anesthesia Assessment: - Prior to the procedure, a History and Physical was performed, and patient medications and allergies were reviewed. The patient's tolerance of previous anesthesia was also reviewed. The risks and benefits of the procedure and the sedation options and risks were discussed with the patient. All questions were answered, and informed consent was obtained. Prior Anticoagulants: The patient has taken no anticoagulant or antiplatelet agents except for aspirin. ASA Grade Assessment: II - A patient with mild systemic disease. After reviewing the risks and benefits, the patient was deemed in satisfactory condition to undergo the procedure. After I obtained informed consent, the scope was passed under direct vision. Throughout the procedure, the patient's blood pressure, pulse, and oxygen saturations were monitored continuously. The Colonoscope was introduced through the anus with the intention of advancing to the ileum. The scope was advanced to the sigmoid colon before the procedure was aborted. Medications were given. The colonoscopy was somewhat difficult due to restricted mobility of the colon. The patient tolerated the procedure fairly well. The quality of the bowel preparation was good. Findings: The perianal and digital rectal examinations were normal. A perforation was found in the sigmoid colon. This defect was small. To repair the defect, the tissue edges were approximated and one [id number] clip was successfully placed (MR conditional). Closure of the defect was successful. 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 There was no bleeding at the end of the procedure. Impression: - A perforation was found in the sigmoid colon. Clip (MR conditional) was placed. 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 - No specimens collected. Recommendation: - Admit the patient to [facility] for [facility] care. - Clear liquid diet. - Continue present medications. - Return to primary care physician as previously scheduled. Kenneth Corey DO 07/17/2023 10:04:07 AM This report has been signed electronically. Note Initiated On: 07/17/2023 9:42 AM Number of Addenda: 0 I attest to the content of the Intraoperative Record and orders documented therein, exceptions below {[id number]}
--- NOTE | 2023-07-17 10:14 | Anesthesiology Progress Note ---
Date of Service July 17, 2023 Anesthesia Post Procedure Vital Signs Vital Signs: Temp Pulse Resp BP Pulse Ox O2 Del Method 07/17/23 10:12 97 H 16 146/90 H 100 Room Air 07/17/23 10:06 98 H 16 145/87 H 99 Room Air 07/17/23 10:03 102 H 16 151/97 H 90 Room Air 07/17/23 09:14 97.0 F L 83 16 127/81 98 Room Air Pain Intensity Head: Pain Intensity: 5 Transfer of Care Handoff Completed per policy Notes Mental Status: alert / awake / arousable and participated in evaluation Patient Amnestic to Procedure: Yes Nausea / Vomiting: adequately controlled Pain: adequately controlled Airway Patency, RR, SpO2: stable & adequate BP & HR: stable & adequate Hydration State: stable & adequate Anesthetic Complications: no major complications apparent and Pt Satisfied with anesthetic care
[2023-07-17] MEDS ORDERED: ALBUTEROL HFA 8 GM INHALER INH PRN (11:16)
--- NOTE | 2023-07-17 11:20 | History & Physical Report ---
Date of Service July 17, 2023 Assessment & Plan (1) Perforation of colon as colonoscopy complication: Plan: Patient will be admitted. Patient wll be NPO and will advance diet once cleared by GI. will place on zosyn for antibiotic coverage. Thankfully no signs of peritonitis on exam. will admit under OBS and monitor (2) Hyperlipidemia: Plan: resume home meds (3) COPD (chronic obstructive pulmonary disease): Plan: stable History of Present Illness Chief Complaint: colon distention Primary Care Provider: EDDI Ingram 48 yo female with PMH described below was scheduled for a colonscpy today. This was ordered as se has family history of colon cancen. DUring the procedure, she suffered a complication with a sigmoid perforaction. The perforaction was clipped and procedure was aborted. Psatietn was to e admitted. Allergies Allergy/AdvReac Type Severity Reaction Status Date / Time niacin Allergy Unknown Flushing Verified 07/17/23 09:11 atorvastatin AdvReac Unknown Muscle Pain Verified 07/17/23 09:11 Home Medications Medication Instructions Recorded Confirmed Type ascorbic acid (vitamin C) 1,000 mg 1 g PO QAM 11/24/21 07/17/23 History tablet furosemide 20 mg tablet (Lasix) 40 mg PO QAM 10/11/22 07/17/23 History albuterol sulfate 90 mcg/actuation 2 puff inhalation Q4H PRN 10/13/22 07/17/23 Rx aerosol inhaler (Ventolin HFA) Shortness Of Breath Or Wheezing #8.5 grams tiotropium bromide 2.5 2 puff inhalation QAM #4 grams 10/13/22 07/05/23 Rx mcg/actuation mist for inhalation (Spiriva Respimat) miscellaneous medical supply See Rx Instructions miscellaneous 02/01/23 07/05/23 Rx DAILY #1 ea miscellaneous medical supply 1 ea miscellaneous ONCE #1 ea 06/13/23 07/17/23 Rx cholecalciferol (vitamin D3) 50 125 mcg (2.5 x 50 mcg (2,000 06/19/23 07/17/23 Rx mcg (2,000 unit) capsule unit)) PO DAILY #90 caps peg 3350-sod [id number] See Rx Instructions PO .COMPLEX #2 07/02/23 Rx 178.7-7.3-0.5-1.12-0.9 gram oral mL soln (Suflave) aspirin 81 mg tablet,delayed 81 mg PO HS 07/05/23 07/17/23 History release (Adult Aspirin Regimen) fexofenadine 180 mg tablet 180 mg PO QAM 07/05/23 07/17/23 History montelukast 10 mg tablet 10 mg PO HS 07/05/23 07/05/23 History potassium chloride 10 mEq 10 meq PO QAM 07/05/23 07/05/23 History capsule,extended release rosuvastatin 5 mg tablet (Crestor) 5 mg PO HS 07/05/23 07/05/23 History magnesium oxide 400 mg (241.3 mg 400 mg PO QAM #90 tabs 07/13/23 Rx magnesium) tablet trazodone 50 mg tablet 50 mg PO HS #90 tabs 07/13/23 Rx Past Med/Surg History Medical History Prediabetes diet controlled Anxiety and depression Hx of migraines Sleep apnea cpap Asthma daily and prn inh>doesn't use the inhalers due to recent weight loss (2022) Thyroid nodule monitoring Hyperlipidemia B12 deficiency Pericardial cyst dx early 2022, found on scan thru [facility] er>sent to [facility] [place] Symptomatic varicose veins COPD (chronic obstructive pulmonary disease) "[facility] [employer] told me i didn't have copd" Surgical History History of bilateral tubal ligation Hx of laparoscopy History of esophagogastroduodenoscopy (EGD) Hx of colonoscopy Hx of sinus surgery w/septoplasty Hx of cardiac catheterization ~age [age], ph luz maria, for palpitations, no stents; f/u [facility] cardiology H/O hernia repair H/O: hysterectomy History of cholecystectomy Family History Grandmother (Maternal) Breast cancer Grandmother (Paternal) Breast cancer Ovarian cancer Mother Colorectal cancer Father Myocardial infarction Diabetes Uncle Prostate cancer Other Cancer Emphysema lung Heart disease Lung disease Denies family history of Kidney disease Asthma Social History Smoking Status: Former smoker Tobacco Type: Cigarettes Age Started Using Tobacco: 20; Age Quit Using Tobacco: 46; Cigarettes Per Day: smoked 1 pack/week; Smoking End Date: 10/2021; Second Hand Exposure: No; Do You Dip or Chew Tobacco: No; Tobacco Cessation Education Requested by Patient: No Hx Alcohol Use: Yes (no longer drinks) Hx Substance Use: No Preferred Language: Telugu Communication Ability: Effective Visual Impairment: No Limitations Hearing Ability: Normal Cane Burner Required: No Beliefs That Will Affect Care: None marital status: Current Living Situation: Spouse current occupational status: employed current occupation: [employer] How many Children do You have: 2 Other Information That Helps Us Care for You: No Feels Safe at Home: Yes Safety Concerns: Feels Safe At This Time Childhood Exposure to Second-Hand Smoke: Yes Diet: low salt and regular Diet Comment: Regular- low sodium caffeine: Yes during the past year weight has: decreased > 10 lbs Dental Care, Regularly: No Physical Activity Frequency: Daily Seatbelt Use: always Sunscreen Use: Yes Assistive Devices: CPAP Review of Systems Constitutional: no fever Eyes: no blind spots Ear, Nose, Mouth, Throat: no ear pain Respiratory: no cough Cardiovascular: no chest pain Gastrointestinal: + abdominal pain Genitourinary: no dysuria Musculoskeletal: no back pain Integumentary: no rash Neurologic: no gait abnormality Psychiatric: no behavioral changes Endocrine: no fatigue Hematologic / Lymphatic: no easy bleeding Allergy / Immunological: no GI upset with certain foods Physical Exam Constitutional: WD/WN, vitals as above Eyes: PERRL, conjunctivae normal, anicteric sclerae ENMT: external ear and nose normal, oropharynx normal Neck: trachea midline, no thyromegaly Respiratory: normal respiratory effort, lungs clear to auscultation Cardiovascular: RRR, no murmur, no edema Gastrointestinal (Abdomen): normal bowel sounds, soft, nontender, no hepatosplenomegaly Skin: no rashes, warm and dry Neurologic: PERRL, EOMI, accommodation nl, no face palsy, no dysarthria Psychiatric: A+Ox3, euthymic affect Lymphatic: no cervical or axillary lymphadenopathy Results & Data Results & Data Vital Signs (Past 12 Hours) Vital Signs Temp Pulse Resp BP Pulse Ox O2 Del Method 07/17/23 10:55 66 16 138/90 98 Room Air 07/17/23 10:39 80 16 127/90 100 Room Air 07/17/23 10:26 75 16 170/87 H 100 Room Air 07/17/23 10:18 87 16 147/93 H 100 Room Air 07/17/23 10:12 97 H 16 146/90 H 100 Room Air 07/17/23 10:06 98 H 16 145/87 H 99 Room Air 07/17/23 10:03 102 H 16 151/97 H 90 Room Air 07/17/23 09:14 36.1 C L 83 16 127/81 98 Room Air PG Care Time/CCT Total # of Minutes Spent Total Time Spent with Patient: Total time spent is greater than 50% in coordination of care (as documented) at patient's floor/unit and/or counseling patient: Coding Level of Care Code 38588 INT INP/OBS CARE MIN Diagnoses Perforation of colon as colonoscopy complication K63.1; K91.71 Hyperlipidemia E78.5 COPD (chronic obstructive pulmonary disease) J44.9
[2023-07-17] MEDS ORDERED: PIPERACILLIN/TAZOBACTAM 4.5 GM in DEXTROSE 5% MINI-B 100 ML IV ONE (12:15)
[2023-07-17] MEDS: PIPERACILLIN/TAZOBACTAM 4.5 GM in DEXTROSE 5% MINI-B 100 ML IV SCH (17:30)
[2023-07-17] MEDS: ACETAMINOPHEN 325 MG TAB PO PRN (18:34)
[2023-07-17] MEDS: ROSUVASTATIN CALCIUM 5 MG TAB PO SCH (20:29)
[2023-07-17] MEDS: traZODone HCL 50 MG TAB PO SCH (20:29)
[2023-07-17] MEDS: MONTELUKAST SODIUM 10 MG TABLET PO SCH (20:29)
[2023-07-18] MEDS: PIPERACILLIN/TAZOBACTAM 4.5 GM in DEXTROSE 5% MINI-B 100 ML IV SCH ×3 (02:21→17:56)
[2023-07-18 07:26] LABS: Hematocrit (blood only) 39.5 % (37.0-47.0); Hemoglobin 13.4 g/dl (12.0-16.0); Mean Corpuscular Hemoglobin 32.4 pg (25.0-34.0); Mean Corpuscular Hgb Conc 33.9 g/dL (32.0-36.0); Mean Corpuscular Volume 95.6 fL (80.0-100.0); Mean Platelet Volume 10.5 fL (9.4-12.4); Platelet Count 195 K/uL (130-400); RDW Coefficient of Variation 11.9 % (11.5-14.5); RDW Standard Deviation 41.9 fL (36.4-46.3); Red Blood Count 4.13 M/uL (4.20-5.40); White Blood Count 5.61 K/ul (4.8-10.8)
[2023-07-18] MEDS: ACETAMINOPHEN 325 MG TAB PO PRN (07:34)
[2023-07-18] MEDS: MAGNESIUM OXIDE 400 MG TAB PO SCH (07:35)
[2023-07-18] MEDS: FUROSEMIDE 40 MG TAB PO SCH (07:35)
[2023-07-18] MEDS: FEXOFENADINE HCL 180 MG TAB PO SCH (07:36)
[2023-07-18] MEDS: CHOLECALCIFEROL 1,000 UNITS 25 MCG TAB PO SCH (07:36)
[2023-07-18 07:54] LABS: BUN Creatinine Ratio 9.3 (10-20); Calcium 9.2 mg/dl (8.6-10.3); Creatinine Clr Calc Pharmacy 84.9 ml/min; Est GFR (African American) 92.6 ml/min; Est GFR (Non-African American) 79.9 ml/min; Potassium 3.9 mmol/L (3.5-5.1)
[2023-07-18] MEDS ORDERED: CHOLECALCIFEROL 5,000 UNITS 125 MCG TAB PO SCH (09:00)
[2023-07-18] MEDS: UMECLIDINIUM BROMIDE 62.5MCG/BLISTER 7 PUFFS/INHALER INH SCH (12:02)
[2023-07-18] MEDS ORDERED: OPTIRAY 320 500ml IV ONE (12:23)
--- NOTE | 2023-07-18 12:53 | CT Scan Report ---
CT OF THE ABDOMEN AND PELVIS WITH CONTRAST CLINICAL HISTORY: Colon perforation. COMPARISON STUDY: CT of the abdomen and pelvis October 12, 2022. TECHNIQUE: Following IV administration of 86 mL of Optiray, axial images of the abdomen and pelvis we re obtained from the lung bases to the proximal femurs. Images were reviewed in the axial, sagittal, and coronal planes. IV contrast was administered without complication. Automated exposure control wa s utilized for the study. A dose lowering technique was utilized adhering to the principles of ALARA . CT DOSE: 1064.97 mGy.cm FINDINGS: A small amount of pneumoperitoneum is present. There is no biliary ductal dilatation status post cholecystectomy. A few lateral segment hepatic cysts are present. Linear hypodensity within the lateral segment of the liver favors focal fat or scarring. Spleen, adrenal glands, left kidney and p ancreas are unremarkable. A 2.8 cm water attenuation right upper pole renal lesion reflects a cyst. T here is no hydronephrosis. The appendix is normal. Endoscopic clip within the sigmoid colon is noted. This is at site of perforation. There is no associated fluid collection. No significant adjacent str anding is present. Major vasculature is patent. IMPRESSION: Expected findings following placement of an endoscopic clip within the sigmoid colon for perforation. No associated fluid collection. No significant associated inflammation. Small amount of pneumoperitoneum. ACT 112: Negative or not required by law. Electronically signed by: Joseph Felix M.D. 07/18/2023 12:52 PM
--- NOTE | 2023-07-18 16:46 | Hospitalist Progress Note ---
Date of Service July 18, 2023 Assessment & Plan (1) Perforation of colon as colonoscopy complication: Plan: Patient will be admitted. Patient wll be NPO and will advance diet once cleared by GI. will place on zosyn for antibiotic coverage. Thankfully no signs of peritonitis on exam. will admit under OBS and monitor On 07/18 Discussed with GI. Ordered CT scan with IV contrast of ABD Pelvis. Expected findings noted. place on clear liquids. Plan is to possibly discharge on 07/19 to complete 5 days total of antibiotics. finish course with augmentin Patient may return to work on 07/30 (2) Hyperlipidemia: Plan: resume home meds (3) COPD (chronic obstructive pulmonary disease): Plan: stable Admission and Anticipated Discharge Date Admission Date: July 17, 2023 Subjective Patient reports having blood in her stools this morning with worsening abdominal pain. Review of Systems Review of Systems: All systems reviewed & are unremarkable except as noted in HPI & below Physical Exam Constitutional: WD/WN, vitals as above Gastrointestinal (Abdomen): tender to palpation to lower abdomen., soft, no rebound tendnerness Results & Data Results & Data Vital Signs (Past 12 Hours) Vital Signs Temp Pulse Resp BP Pulse Ox O2 Del Method 07/18/23 15:31 36.6 C 69 18 127/84 100 Room Air 07/18/23 08:30 Room Air 07/18/23 07:33 36.6 C 69 18 123/76 98 Room Air PG Care Time/CCT Total # of Minutes Spent Total Time Spent with Patient: Total time spent is greater than 50% in coordination of care (as documented) at patient's floor/unit and/or counseling patient: Coding Level of Care Code 38480 SUB INP/OBS CARE 3/50MIN Diagnoses Perforation of colon as colonoscopy complication K63.1; K91.71 Hyperlipidemia E78.5 COPD (chronic obstructive pulmonary disease) J44.9
[2023-07-18] MEDS: traZODone HCL 50 MG TAB PO SCH (19:56)
[2023-07-18] MEDS: ROSUVASTATIN CALCIUM 5 MG TAB PO SCH (19:56)
[2023-07-18] MEDS: MONTELUKAST SODIUM 10 MG TABLET PO SCH (20:15)
[2023-07-19] MEDS: PIPERACILLIN/TAZOBACTAM 4.5 GM in DEXTROSE 5% MINI-B 100 ML IV SCH ×2 (02:06→09:34)
[2023-07-19] MEDS: FEXOFENADINE HCL 180 MG TAB PO SCH (08:21)
[2023-07-19] MEDS: FUROSEMIDE 40 MG TAB PO SCH (08:21)
[2023-07-19] MEDS: CHOLECALCIFEROL 1,000 UNITS 25 MCG TAB PO SCH (08:21)
[2023-07-19] MEDS: MAGNESIUM OXIDE 400 MG TAB PO SCH (08:21)
[2023-07-19] MEDS: UMECLIDINIUM BROMIDE 62.5MCG/BLISTER 7 PUFFS/INHALER INH SCH (08:21)
--- NOTE | 2023-07-19 08:59 | Hospitalist Progress Note ---
Date of Service July 19, 2023 Assessment & Plan (1) Perforation of colon as colonoscopy complication: Plan: NPO and will advance diet once cleared by GI. continues on zosyn for antibiotic coverage. no signs of peritonitis on exam or CT abd/pelvis. discharge to complete 5 days total of antibiotics finish course with Augmentin Patient may return to work on 07/30 (2) Hyperlipidemia: Plan: resume home meds (3) COPD (chronic obstructive pulmonary disease): Plan: stable Admission and Anticipated Discharge Date Admission Date: July 17, 2023 Results & Data Results & Data Vital Signs (Past 12 Hours) Vital Signs O2 Del Method 07/19/23 07:31 Room Air PG Care Time/CCT Total # of Minutes Spent Total Time Spent with Patient: Total time spent is greater than 50% in coordination of care (as documented) at patient's floor/unit and/or counseling patient: Coding Diagnoses Perforation of colon as colonoscopy complication K63.1; K91.71 Hyperlipidemia E78.5 COPD (chronic obstructive pulmonary disease) J44.9
--- NOTE | 2023-07-19 16:59 | Discharge Summary ---
Date of Service July 19, 2023 Admission HPI Per Admitting Provider 48 yo female with PMH described below was scheduled for a colonscpy today. This was ordered as se has family history of colon cancen. DUring the procedure, she suffered a complication with a sigmoid perforaction. The perforaction was clipped and procedure was aborted. Boyd was to e admitted. Principal Diagnosis perforated colon during colonoscopy, clip applied Discharge Exam abd is soft, normal bowel sounds, non tender no rebound no guarding Discharge Data Allergies Allergy/AdvReac Type Severity Reaction Status Date / Time niacin Allergy Unknown Flushing Verified 07/17/23 09:11 atorvastatin AdvReac Unknown Muscle Pain Verified 07/17/23 09:11 Procedures Performed Operation Date: 07/17/23 10:10 Actual Procedures p Colonoscopy Hemostasis - Kenneth Castaneda Case, DO Ordered Studies 07/18/23 11:31 CT abd pelvis IV con only Urgent Hospital Course (1) Perforation of colon as colonoscopy complication: NPO and will advance diet once cleared by GI. continues on zosyn for antibiotic coverage. no signs of peritonitis on exam or CT abd/pelvis. discharge to complete 5 days total of antibiotics finish course with Augmentin Patient may return to work on 07/30 (2) Hyperlipidemia: resume home meds (3) COPD (chronic obstructive pulmonary disease): stable Total Time Total Time Spent Total Time Spent (In Minutes): It required greater than 30 minutes to prepare this patient for discharge. Discharge Plan Discharge Items Patient Disposition: Home - Self-Care Reason For Visit: Family Hx Of Colon Cancer Discharge Diagnosis: colonic perforation during colonoscopy Activity: Resume your previous activity Non-emergency contact: Primary Care Provider Call non-emergency contact if: your symptoms worsen Follow-up/Referrals: Renny Fletcher CRNP [Primary Care Provider] - 07/23/23 10:00 am Diet: Low Fiber Addtl Attending Provider Instructions: When your bowels are irritated, you may need to limit fiber in your diet until the problem clears up. Your doctor and dietitian can help you design a low-fiber diet based on your health and what you prefer to eat. Ask your doctor how long you should stay on a low-fiber diet. Your doctor probably will have you start adding more fiber to your diet as you get better. Always talk with your doctor or dietitian before you make changes in your diet. Follow-up care is a brock part of your treatment and safety.Be sure to make and go to all appointments, and call your doctor if you are having problems. It's a lso a good idea to know your test results and keep a list of the medicines you take. How can you care for yourself at home? * Choose white or refined grains, and avoid whole grains. That means eating white or refined cereals, breads, crackers, rice, or pasta. * Choose fruits and vegetables that have been peeled and cooked. Avoid fruits and vegetables that are raw or that have skins, seeds, or hulls. * Eat cooked or canned fruit. Low-fiber fruits include applesauce, canned peaches, canned pears, and fruit juice without pulp. * Eat low-fiber vegetables, which include well-cooked vegetables and vegetable juice. * Drink or eat milk, yogurt, or other milk products if you can digest dairy without too many problems. Your doctor may limit milk and milk products for a while. If so, they may recommend a calcium and vitamin D supplement. * Eat well-cooked meat, such as chicken, turkey, fish, or lean meat. You also can eat eggs and tofu. * Avoid these foods: * Bran, brown or wild rice, oatmeal, granola, corn, robb crackers, barley, and whole wheat and other whole-grain breads, such as rye bread * Cereals with more than 2 grams of fiber a serving * Berries, rhubarb, prunes, prune juice, and all dried fruits * Raw vegetables and fruits * Foods that may cause gas, such as raw or cooked cabbage, broccoli, brussels sprouts, and cauliflower * Cooked dried beans, lentils, and split peas * Crunchy peanut butter * Ice cream with fruit pieces in it * Coconut, nuts, popcorn, raisins, and seeds, or any ice cream, yogurt, or cheese with these in them Addtl Black Puller Provider Instructions: please complete your antibiotics Pending Studies at Discharge: No Stand-Alone Forms: My [facility] modu, Work/School Release, Smoking Cessation Medications and DC Order Prescriptions: New amoxicillin-pot clavulanate 875-125 mg tablet 1 tab PO BID Qty: 6 0RF Continued miscellaneous medical supply Misc See Rx Instructions miscellaneous DAILY Qty: 1 0RF Rx Instructions: Refit for CPAP mask as directed daily; Refit for CPAP mask miscellaneous medical supply Misc 1 ea miscellaneous ONCE Qty: 1 0RF Rx Instructions: CHIN STRAP Suflave 178.7-7.3-0.5 gram recon soln See Rx Instructions PO .COMPLEX Qty: 2 0RF Rx Instructions: orally; TAKE FIRST DOSE AT 6 PM AND SECOND DOSE 6 HOURS PRIOR TO PROCEDURE BIN: [id number] PCN: CN GROUP: [id number] trazodone 50 mg tablet 50 mg PO HS Qty: 90 0RF magnesium oxide 400 mg (241.3 mg magnesium) tablet 400 mg PO QAM Qty: 90 0RF furosemide [Lasix] 20 mg tablet 40 mg PO QAM albuterol sulfate [Ventolin HFA] 90 mcg/actuation HFA aerosol inhaler 2 puff inhalation Q4H PRN (Reason: Shortness Of Breath Or Wheezing) Qty: 8.5 2RF Spiriva Respimat 2.5 mcg/actuation mist 2 puff INHALATION QAM Qty: 4 5RF Patient Comments: has not been using cholecalciferol (vitamin D3) 50 mcg (2,000 unit) capsule 125 mcg PO DAILY Qty: 90 1RF ascorbic acid (vitamin C) 1,000 mg tablet 1 g PO QAM potassium chloride 10 mEq capsule, extended release 10 meq PO QAM fexofenadine 180 mg tablet 180 mg PO QAM aspirin [Adult Aspirin Regimen] 81 mg tablet,delayed release (DR/EC) 81 mg PO HS montelukast 10 mg tablet 10 mg PO HS rosuvastatin [Crestor] 5 mg tablet 5 mg PO HS Discharge Orders: Discharge Order (Routine); Ordered 07/19/23 Ordered By: Reji Elliott Admission Data Admit Date/Time: 07/17/23 11:13 Attending Provider: Reji Elliott Admit Provider: Mikal Caicedo Primary Care Provider: Renny Fletcher Other Interventions: Discharge Summary Assessment (RN) Last Done: 07/19/23 15:48 Coding Level of Care Code 41918 INP/OBS DISCH >30 MIN Diagnoses Perforation of colon as colonoscopy complication K63.1; K91.71 Hyperlipidemia E78.5 COPD (chronic obstructive pulmonary disease) J44.9
== END 2023-07-19 17:30 | disposition home or self-care (01) ==
LOC: SUATTDRO 11:13